=== PATIENT | male | born 1930 | race Caucasian/White ===

== ENCOUNTER 2017-10-07 19:44 | Emergency (ER) | payer MEDICARE, OTHER ==
[~2017-10-07] VITALS: Ht 175.3 cm; Wt 79.5 kg
[~2017-10-07 19:44] MED LIST: CALCIUM +D PO; LIPITOR20 M1 PO; MEDDOSEPAK PO; MELATONIN3 M1 PO; MELOXICAM15 MG PO; MELOXICAM7.5 MG PO; MOEXIPRIL PO; OMEPRAZOLE20 MG PO; PREDNISONE20 MG PO; TAMSULOSIN0.4 MG PO; TRAZODONE50 MG PO
[2017-10-07] MEDS ORDERED: XARELTO20 MG PO (20:22)
[2017-10-07] MEDS ORDERED: FOLIC ACID1 MG PO (20:23)
[2017-10-07] MEDS ORDERED: TREXALL15 MG PO (20:24)
[2017-10-07] MEDS ORDERED: FORTEO600 MCG/2. SC (20:25)
[2017-10-07 21:17] LABS: HEMATOCRIT 34.7 % (39.0-50.0); HEMOGLOBIN 11.5 g/dl (14.0-18.0); IMMATURE GRANULOCYTES 1.3 % (0.0-1.0); MEAN CELL VOLUME 101.5 fL CALC (80.0-100.0); MEAN CORPUSCULAR HGB 33.6 pG CALC (26.0-32.0); MEAN CORPUSCULAR HGB CONC 33.1 g/L CALC (32.0-36.0); NEUT# 7.79 thou/uL (1.82-7.42); RED BLOOD COUNT 3.42 mill/uL (4.70-6.10); RED CELL DISTRI WIDTH 15.3 % (11.5-15.5)
[2017-10-07 21:52] LABS: ALBUMIN 4.4 g/dL (3.2-5.0); ALKALINE PHOSPHATASE 112 u/l (38-126); ANION GAP 20 (6-22 (CALC)); BILIRUBIN, TOTAL 0.5 mg/dL (0.0-1.4); BUN 28 mg/dL (8-23); BUN/CREATININE RATIO 22 (12-20 (CALC)); CALCIUM 10.1 mg/dL (8.4-10.2); CARBON DIOXIDE 22 mmol/l (22-30); CHLORIDE 105 mmol/l (95-108); CREATININE 1.2 mg/dL (0.7-1.3); GFR 58 ML/MIN (>=60 (CALC)); GFR FOR AFR.AMER. > 60 ML/MIN (>=60 (CALC)); GLUCOSE 119 mg/dL (82-115); POTASSIUM 4.7 mmol/l (3.5-5.1); SGOT/AST 27 u/l (19-48); SGPT/ALT 27 u/l (11-66); SODIUM 142 mmol/l (137-146); TOTAL PROTEIN 7.4 g/dL (6.3-8.2)
[2017-10-07 23:30] LABS: URINE BILIRUBIN - DIPSTICK NEGATIVE (NEGATIVE); URINE BLOOD DIPSTICK NEGATIVE (NEGATIVE); URINE COLOR YELLOW; URINE GLUCOSE - DIPSTICK NEGATIVE (NEGATIVE); URINE KETONE NEGATIVE (NEGATIVE); URINE LEUK ESTERASE NEGATIVE (NEGATIVE); URINE NITRITE - DIPSTICK NEGATIVE (Negative); URINE PROTEIN - DIPSTICK NEGATIVE (NEG-TRACE); URINE SPECIFIC GRAVITY 1.025; URINE UROBILINOGEN - DIPSTICK 0.2 E.U./dL (0.2)
[2017-10-07 23:31] LABS: URINE CLARITY CLEAR
[2017-10-08] MEDS ORDERED: PERCOCET 5/325M1 TAB PO (00:26)
[2017-10-08] MEDS ORDERED: COLACE100 MG PO (00:26)
[2017-10-08 00:35] VITALS: BP 132/68
== END 2017-10-08 00:35 | disposition home or self-care (01) ==
LOC: ED 19:44
PROVIDERS: Emergency Medicine
DX: S22.41XA Multiple fractures of ribs, right side, initial encounter for closed fracture (principal); M51.06 Intervertebral disc disorders with myelopathy, lumbar region; R93.5 Abnormal findings on diagnostic imaging of other abdominal regions, including retroperitoneum; W10.8XXA Fall (on) (from) other stairs and steps, initial encounter; Y92.009 Unspecified place in unspecified non-institutional (private) residence as the place of occurrence of the external cause

== ENCOUNTER 2019-11-22 | Emergency (ER) | payer MEDICARE, OTHER ==
[~2019-11-22] MED LIST changes: +COLACE100 MG PO; +FOLIC ACID1 MG PO; +FORTEO600 MCG/2. SC; +PERCOCET 5/325M1 TAB PO; +TREXALL15 MG PO; +XARELTO20 MG PO
[2019-11-22 17:07] LABS: HEMOGLOBIN 12.5 g/dl (14.0-18.0); IMMATURE GRANULOCYTES 0.3 % (0.0-5.0); MEAN CORPUSCULAR HGB 30.6 pG CALC (26.0-32.0); MEAN CORPUSCULAR HGB CONC 32.9 g/L CALC (32.0-36.0); NEUT# 5.4 thou/uL (1.82-7.42); RED BLOOD COUNT 4.08 mill/uL (4.70-6.10); RED CELL DISTRI WIDTH 14.7 % (11.5-15.5)
[2019-11-22 17:08] LABS: MEAN CELL VOLUME 93.1 fL CALC (80.0-100.0)
[2019-11-22 17:28] LABS: ALKALINE PHOSPHATASE 130 u/l (38-126); ANION GAP 14 (6-22 (CALC)); BILIRUBIN, TOTAL 0.8 mg/dL (0.0-1.4); BUN 23 mg/dL (8-23); BUN/CREATININE RATIO 16 (12-20 (CALC)); CARBON DIOXIDE 24 mmol/l (22-30); CHLORIDE 106 mmol/l (95-108); CREATININE 1.5 mg/dL (0.7-1.3); GFR 44 ML/MIN (>=60 (CALC)); GFR FOR AFR.AMER. 54 ML/MIN (>=60 (CALC)); LIPASE 188 u/l (23-300); POTASSIUM 4.7 mmol/l (3.5-5.1); SGOT/AST 65 u/l (19-48); SODIUM 138 mmol/l (137-146); TOTAL PROTEIN 7.3 g/dL (6.3-8.2)
[2019-11-22 19:42] LABS: URINE BILIRUBIN - DIPSTICK NEGATIVE (NEGATIVE); URINE BLOOD DIPSTICK NEGATIVE (NEGATIVE); URINE COLOR YELLOW; URINE GLUCOSE - DIPSTICK NEGATIVE (NEGATIVE); URINE KETONE NEGATIVE (NEGATIVE); URINE LEUK ESTERASE NEGATIVE (NEGATIVE); URINE NITRITE - DIPSTICK NEGATIVE (Negative); URINE PH 6.5 (4.5-8.0); URINE PROTEIN - DIPSTICK NEGATIVE (NEG-TRACE); URINE SPECIFIC GRAVITY 1.025; URINE UROBILINOGEN - DIPSTICK 0.2 E.U./dL (0.2)
[2019-11-22] MEDS ORDERED: ZOFRAN4 MG/TAB PO (20:12)
[2019-11-22] MEDS ORDERED: LORTAB 5/3255 MG PO (20:12)
== END 2019-11-22 20:30 | disposition home or self-care (01) ==
PROVIDERS: Family Medicine
DX: K82.9 Disease of gallbladder, unspecified (principal); J44.9 Chronic obstructive pulmonary disease, unspecified; R10.11 Right upper quadrant pain
CPT/HCPCS: Q9967